=== PATIENT | female | born 1975 | race Caucasian/White ===

== ENCOUNTER 2017-07-17 18:49 | Emergency (ER) | payer BC | END 2017-07-17 19:08 | disposition home or self-care (01) | LOC: ER 18:49 | DX: J11.1 Influenza due to unidentified influenza virus with other respiratory manifestations (principal); F32.9 Major depressive disorder, single episode, unspecified; F41.9 Anxiety disorder, unspecified | CPT/HCPCS: 99281 ==

== ENCOUNTER 2018-08-30 08:21 | Inpatient (IN) | payer SELFPAY ==
[~2018-08-30] VITALS: Ht 167.6 cm; Wt 72.4 kg
[~2018-08-30 08:21] MED LIST: CITA10TA8 PO; HYDR-2761 PO; METR500T PO; PROM12.56 PO; TAMS0.4C97 PO; mirena
[2018-08-30 08:55] LABS: BILIRUBIN,URINE SMALL (NEG); CLARITY,URINE CLOUDY; COLOR,URINE ORANGE; NITRITE,URINE POSITIVE (NEG); PH,URINE 5.5; PROTEIN,URINE 100 mg/dL (NEG-TRACE)
--- NOTE | 2018-08-30 08:59 | PHYS DOC ---
Past Medical History Past Medical History: Anxiety, Depression, Kidney Stone, UTI (ELMER TRAN APRN) Past Surgical History: Other Additional Past Surgical Histo: BREAST AUGMENTATION,STENT-LEFT KIDNEY (ELMER TRAN APRN) Alcohol Use: None Drug Use: None (ELMER TRAN APRN) Adult General Chief Complaint Chief Complaint: FLANK PAIN HPI HPI Patient is a 43 year old female with a history of anxiety, depression, kidney stones, who presents to the ED today complaining of 6 out of 10 intermittent left flank pain that has been going on since she was diagnosed with a kidney stone around August 15, 2018. Patient states she was seen in the ED, had a 4 mm stone as well as infection in her urine, she states she was admitted and was discharged on August 17, 2018 with stent placement. She states she's been taking her medications as prescribed. She states she has continued to have left flank pain with nausea and vomiting. She states she is supposed to have the stents removed on Monday next week, she states she cannot wait until then because she still has left flank pain and feels the stents are making her pain worse. (ELMER TRAN APRN) Review of Systems Review of Systems Constitutional: Denies fever or chills [] Eyes: Denies change in visual acuity, redness, or eye pain [] HENT: Denies nasal congestion or sore throat [] Respiratory: Denies cough or shortness of breath [] Cardiovascular: No additional information not addressed in HPI [] GI: Reports nausea and vomiting. Denies abdominal pain, bloody stools or diarrhea [] : Reports left flank pain. Denies dysuria or hematuria [] Musculoskeletal: Denies back pain or joint pain [] Integument: Denies rash or skin lesions [] Neurologic: Denies headache, focal weakness or sensory changes All other systems were reviewed and found to be within normal limits, except as documented in this note. (ELMER TRAN APRN) Current Medications Current Medications Current Medications Medications (Trade) Dose Ordered Sig/Jason Start Time Stop Time Status Last Admin Dose Admin Ketorolac Tromethamine (Toradol 30mg Vial) 30 mg 1X ONCE 08/30/18 09:00 08/30/18 09:01 DC 08/30/18 09:29 30 MG Morphine Sulfate (Morphine Sulfate) 4 mg 1X ONCE 2/14/19 09:00 08/30/18 09:01 DC 08/30/18 09:29 4 MG Ondansetron HCl (Zofran) 4 mg 1X ONCE 08/30/18 09:15 08/30/18 09:16 DC 08/30/18 09:29 4 MG Sodium Chloride 1,000 ml @ 1,000 mls/hr 1X ONCE 08/30/18 09:00 08/30/18 09:59 DC 08/30/18 09:28 1,000 MLS/HR Tamsulosin HCl (Flomax) 0.4 mg 1X ONCE 08/30/18 09:00 08/30/18 09:01 DC 08/30/18 09:28 0.4 MG (AZAR HERNANDEZ MD) Allergies Allergies Allergies Coded Allergies Type Severity Reaction Last Updated Verified No Known Drug Allergies 12/12/13 No (AZAR HERNANDEZ MD) Physical Exam Physical Exam Constitutional: Well developed, well nourished, no acute distress, non-toxic appearance. [] HENT: Normocephalic, atraumatic, bilateral external ears normal, oropharynx moist, no oral exudates, nose normal. [] Eyes: PERRLA, EOMI, conjunctiva normal, no discharge. [] Neck: Normal range of motion, no tenderness, supple, no stridor. [] Cardiovascular:Heart rate regular rhythm, no murmur [] Lungs & Thorax: Bilateral breath sounds clear to auscultation [] Abdomen: Bowel sounds normal, soft, no tenderness, no masses, no pulsatile masses. [] Skin: Warm, dry, no erythema, no rash. [] Back: No tenderness, mild left CVA tenderness. [] Extremities: No tenderness, no cyanosis, no clubbing, ROM intact, no edema. [] Neurologic: Alert and oriented X 3, normal motor function, normal sensory function, no focal deficits noted. [] Psychologic: Affect normal, judgement normal, mood normal. [] (ELMER TRAN APRN) Current Patient Data Vital Signs Vital Signs Date Time Temp Pulse Resp B/P (MAP) Pulse Ox O2 Delivery O2 Flow Rate FiO2 08/30/18 08:30 98.8 85 20 129/63 (85) 99 Room Air 98.8 (AZAR HERNANDEZ MD) Lab Values Laboratory Tests Test 08/30/18 08:30 08/30/18 08:32 08/30/18 09:25 Urine Collection Type Unknown Urine Color Smith Urine Clarity Cloudy Urine pH 5.5 Urine Specific Holcomb 1.020 Urine Protein 100 mg/dL (NEG-TRACE) Urine Glucose (UA) Negative mg/dL (NEG) Urine Ketones (Stick) Trace mg/dL (NEG) Urine Blood Large (NEG) Urine Nitrite Positive (NEG) Urine Bilirubin Small (NEG) Urine Urobilinogen Dipstick 1.0 mg/dL (0.2 mg/dL) Urine Leukocyte Esterase Moderate (NEG) Urine RBC >40 /HPF (0-2) Urine WBC 5-10 /HPF (0-4) Urine Squamous Epithelial Cells Mod /LPF Urine Bacteria Few /HPF (0-FEW) Urine Mucus Slight /LPF Urine Opiates Screen Neg (NEG) Urine Methadone Screen Neg (NEG) Urine Barbiturates Neg (NEG) Urine Phencyclidine Screen Neg (NEG) Urine Amphetamine/Methamphetamine Neg (NEG) Urine Benzodiazepines Screen Neg (NEG) Urine Cocaine Screen Neg (NEG) Urine Cannabinoids Screen Pos (NEG) Urine Ethyl Alcohol Neg (NEG) POC Urine HCG, Qualitative Hcg negative (Negative) White Blood Count 9.3 x10^3/uL (4.0-11.0) Red Blood Count 4.58 x10^6/uL (3.50-5.40) Hemoglobin 15.0 g/dL (12.0-15.5) Hematocrit 44.3 % (36.0-47.0) Mean Corpuscular Volume 97 fL (79-100) Mean Corpuscular Hemoglobin 33 pg (25-35) Mean Corpuscular Hemoglobin Concent 34 g/dL (31-37) Red Cell Distribution Width 13.9 % (11.5-14.5) Platelet Count 400 x10^3/uL (140-400) Neutrophils (%) (Auto) 71 % (31-73) Lymphocytes (%) (Auto) 18 % (24-48) L Monocytes (%) (Auto) 8 % (0-9) Eosinophils (%) (Auto) 3 % (0-3) Basophils (%) (Auto) 1 % (0-3) Neutrophils # (Auto) 6.6 x10^3uL (1.8-7.7) Lymphocytes # (Auto) 1.6 x10^3/uL (1.0-4.8) Monocytes # (Auto) 0.7 x10^3/uL (0.0-1.1) Eosinophils # (Auto) 0.2 x10^3/uL (0.0-0.7) Basophils # (Auto) 0.1 x10^3/uL (0.0-0.2) Sodium Level 141 mmol/L (136-145) Potassium Level 3.6 mmol/L (3.5-5.1) Chloride Level 104 mmol/L (98-107) Carbon Dioxide Level 28 mmol/L (21-32) Anion Gap 9 (6-14) Blood Urea Nitrogen 14 mg/dL (7-20) Creatinine 0.8 mg/dL (0.6-1.0) Estimated GFR (Cockcroft-Gault) 79.0 BUN/Creatinine Ratio 18 (6-20) Glucose Level 91 mg/dL (70-99) Calcium Level 8.8 mg/dL (8.5-10.1) Total Bilirubin 0.4 mg/dL (0.2-1.0) Aspartate Amino Transferase (AST) 18 U/L (15-37) Alanine Aminotransferase (ALT) 30 U/L (14-59) Alkaline Phosphatase 65 U/L (46-116) Total Protein 7.0 g/dL (6.4-8.2) Albumin 3.6 g/dL (3.4-5.0) Albumin/Globulin Ratio 1.1 (1.0-1.7) Lipase 838 U/L (73-393) H Ethyl Alcohol Level < 10 mg/dL (0-10) Laboratory Tests 08/30/18 09:25 Laboratory Tests 08/30/18 09:25 (AZAR HERNANDEZ MD) EKG EKG [] (ELMER TRAN APRN) Radiology/Procedures Radiology/Procedures []PROCEDURE: CT ABDOMEN PELVIS WO CONTRAST CT ABDOMEN PELVIS WO CONTRAST Indication: L FLANK PAIN H/O STONES WITH STENTS NO PREV Exposure: One or more of the following individualized dose reduction techniques were utilized for this examination: 1. Automated exposure control 2. Adjustment of the mA and/or kV according to patient size 3. Use of iterative reconstruction technique. Comparison: August 15, 2018. Contrast: No intravenous or oral contrast. FINDINGS: Right breast implant is partially visualized. Mild lung base atelectasis. Evaluation of solid viscera, bowel and vasculature is compromised by the noncontrast technique. Liver and spleen are unremarkable. The pancreas head is difficult to distinguish from adjacent unopacified bowel. No definite pancreas abnormality. No adrenal mass. Subtle hypodensity in the upper pole of the posterior right kidney measures 14 Hounsfield units, representing a small poorly defined cyst appears similar as previous exam. Tiny nonobstructive right renal calculus is unchanged. No right hydronephrosis or urolithiasis Left ureteric stent identified extending from left renal pelvis to the urinary bladder. There is mild left hydronephrosis, similar to slightly greater than previous study. Ureter is not dilated on the left. No evidence of calculus along the course of the catheter. No calcified gallstone. Aorta is nonaneurysmal. No evidence of bowel obstruction. No definite acute colitis. The appendix appears normal. No evidence of ascites or pneumoperitoneum. No evidence of a pelvic mass. Urinary bladder is not adequately distended for evaluation. Vertebral body height and alignment appear maintained. No aggressive bone destruction. IMPRESSION: 1. Left urinary tract stent in place. Mild left hydronephrosis, similar to slightly greater, but obstructing calculus is not visualized on today's study. 2. Small subtle hypodense right upper pole renal lesion, likely a cyst, similar to prior study. Electronically signed by: Niels Richter MD (08/30/2018 9:25 AM) [facility] DICTATED and SIGNED BY: NIELS RICHTER MD DATE: 08/30/18 0913 (ELMER TRAN APRN) Course & Med Decision Making Course & Med Decision Making Pertinent Labs and Imaging studies reviewed. (See chart for details) This is a 43-year-old female patient presented to the ED today with ongoing left flank pain since she was diagnosed with kidney stone (4mm) and UTI on August 15, 2018. She had stent placement during her diagnoses. Presents to the ED complaining of ongoing flank pain with nausea vomiting. States is supposed to be removed on Monday next week. Patient is afebrile. Urine analysis is noted for moderate amount of leukocytes, nitrites, moderate amount of squamous cell epithelium, large amount of blood. CBC within normal WBC , CMP with no acute findings. Lipase 838. Patient denies any history of alcohol use. CT of the abdomen and pelvic shows left urinary tract stent in place. Mild left hydronephrosis, similar toslightly greater, but obstructing calculus is not visualized on today's study. Small subtle hypodense right upper pole renal lesion, likely a cyst, similar to prior study. Patient was started on Cipro and IV fluids. Consulted with Dr. Kim who accepted patient for admission Routine consult placed for urology. Routine consult placed for GI (ELMER TRAN APRN) Course & Med Decision Making Staff Physician Addendum: I was working in the ER during the course of this patient's visit. I was available for consultation as needed, but I was not directly involved in the care of this patient. (AZAR HERNANDEZ MD) Dragon Disclaimer Dragon Disclaimer This electronic medical record was generated, in whole or in part, using a voice recognition dictation system. (ELMER TRAN APRN) Departure Departure Impression: Primary Impression: UTI (lower urinary tract infection) Additional Impression: Pancreatitis, acute Disposition: 09 ADMITTED INPATIENT Condition: STABLE Referrals: MARVIN HUNTER (PCP) Problem Qualifiers Additional Impression: Pancreatitis, acute Pancreatitis type: unspecified pancreatitis type Acute pancreatitis complication: unspecified Qualified Codes: K85.90 - Acute pancreatitis without necrosis or infection, unspecified ELMER TRAN APRN Aug 30, 2018 08:59 AZAR HERNANDEZ MD Aug 30, 2018 12:15
[2018-08-30] MEDS ORDERED: IV NORMAL SALINE 1000ML BAG 1,000 ML IV ONE ×2 (09:00→10:45)
[2018-08-30] MEDS ORDERED: TAMSULOSIN 0.4 MG CAP.ER.24H. PO ONE (09:00)
[2018-08-30] MEDS ORDERED: KETOROLAC 30 MG/ML VIAL. IV ONE (09:00)
[2018-08-30] MEDS ORDERED: MORPHINE SULFATE 4 MG/ML VIAL. IV ONE (09:00)
[2018-08-30 09:15] LABS: BACTERIA,URINE FEW /HPF (0-FEW); RBC,URINE >40 /HPF (0-2); SQUAMOUS EPITHELIAL CELL,UR MOD /LPF
[2018-08-30] MEDS ORDERED: ONDANSETRON PF 4 MG/2 ML VIAL. IV ONE (09:15)
[2018-08-30 09:24] LABS: BARBITURATES NEG (NEG); BENZODIAZEPINES NEG (NEG); CANNABINOIDS POS (NEG); COCAINE NEG (NEG); METHADONE NEG (NEG); OPIATES NEG (NEG); PHENCYCLIDINE NEG (NEG)
[2018-08-30 09:26] LABS: AMPHETAMINE/METHAMPHETAMINE NEG (NEG)
--- NOTE | 2018-08-30 09:28 | RAD ---
CT ABDOMEN PELVIS WO CONTRAST Indication: L FLANK PAIN H/O STONES WITH STENTS NO PREV Exposure: One or more of the following individualized dose reduction techniques were utilized for this examination: 1. Automated exposure control 2. Adjustment of the mA and/or kV according to patient size 3. Use of iterative reconstruction technique. Comparison: August 15, 2018. Contrast: No intravenous or oral contrast. FINDINGS: Right breast implant is partially visualized. Mild lung base atelectasis. Evaluation of solid viscera, bowel and vasculature is compromised by the noncontrast technique. Liver and spleen are unremarkable. The pancreas head is difficult to distinguish from adjacent unopacified bowel. No definite pancreas abnormality. No adrenal mass. Subtle hypodensity in the upper pole of the posterior right kidney measures 14 Hounsfield units, representing a small poorly defined cyst appears similar as previous exam. Tiny nonobstructive right renal calculus is unchanged. No right hydronephrosis or urolithiasis Left ureteric stent identified extending from left renal pelvis to the urinary bladder. There is mild left hydronephrosis, similar to slightly greater than previous study. Ureter is not dilated on the left. No evidence of calculus along the course of the catheter. No calcified gallstone. Aorta is nonaneurysmal. No evidence of bowel obstruction. No definite acute colitis. The appendix appears normal. No evidence of ascites or pneumoperitoneum. No evidence of a pelvic mass. Urinary bladder is not adequately distended for evaluation. Vertebral body height and alignment appear maintained. No aggressive bone destruction. IMPRESSION: 1. Left urinary tract stent in place. Mild left hydronephrosis, similar to slightly greater, but obstructing calculus is not visualized on today's study. 2. Small subtle hypodense right upper pole renal lesion, likely a cyst, similar to prior study. Electronically signed by: Niels Richter MD (08/30/2018 9:25 AM) [facility]
[2018-08-30 09:53] LABS: BASO # 0.1 x10^3/uL (0.0-0.2); BASO % 1 % (0-3); EOS # 0.2 x10^3/uL (0.0-0.7); EOS % 3 % (0-3); HEMATOCRIT 44.3 % (36.0-47.0); LYMPH # 1.6 x10^3/uL (1.0-4.8); LYMPH % 18 % (24-48); MEAN CORPUSCULAR HEMOGLOBIN 33 pg (25-35); MEAN CORPUSCULAR HGB CONC 34 g/dL (31-37); MEAN CORPUSCULAR VOLUME 97 fL (79-100); MONO # 0.7 x10^3/uL (0.0-1.1); MONO % 8 % (0-9); NEUT # 6.6 x10^3uL (1.8-7.7); NEUT % 71 % (31-73); PLATELET COUNT 400 x10^3/uL (140-400); RED BLOOD COUNT 4.58 x10^6/uL (3.50-5.40); RED CELL DISTRIBUTION WIDTH 13.9 % (11.5-14.5); WHITE BLOOD COUNT 9.3 x10^3/uL (4.0-11.0)
[2018-08-30 10:10] LABS: CALCIUM 8.8 mg/dL (8.5-10.1); CREATININE 0.8 mg/dL (0.6-1.0); POTASSIUM 3.6 mmol/L (3.5-5.1)
[2018-08-30 10:11] LABS: ALBUMIN 3.6 g/dL (3.4-5.0); ALBUMIN/GLOBULIN RATIO 1.1 (1.0-1.7); TOTAL BILIRUBIN 0.4 mg/dL (0.2-1.0)
--- NOTE | 2018-08-30 10:43 | PDOC1 ---
History and Physical Date of Admission Date of Admission DATE: 08/30/18 TIME: 10:43 Identification/Chief Complaint Chief Complaint SEEN IN ER presented to the ED today complaining of 6 out of 10 intermittent left flank pain that has been going on since she was diagnosed with a kidney stone August 15, 2018. Patient states she was seen in the ED, had a 4 mm stone as well as infection in her urine, she states she was admitted and was discharged on August 17, 2018 with stent placement. She states she's been taking her medications as prescribed. C/O left flank pain with nausea and vomiting. She states she is supposed to have the stents removed on Monday09/03/18, Past Medical History Past Medical History Past Medical History: Anxiety, Depression, Kidney Stone, UTI SMOKER FHX COPD PMH: PMH: UTI, ureterolithiasis, depression, anxiety, bacterial vaginosis left ureteral stent, breast augmentation, IUD Social History: Smoke: <1 pack per day ALCOHOL: none Drugs: Marijuana (occasionally) Psych: Addictions Musculoskeletal: low back pain Family History Family History: High Cholestrol Social History Smoke: <1 pack per day ALCOHOL: none Drugs: Marijuana Current Medications Current Medications Current Medications Sodium Chloride 1,000 ml @ 1,000 mls/hr 1X ONCE IV Last administered on at 09:28; Start 08/30/18 at 09:00; Stop 08/30/18 at 09:59; Status DC Tamsulosin HCl (Flomax) 0.4 mg 1X ONCE PO Last administered on 08/30/18at 09:28 ; Start 08/30/18 at 09:00; Stop 08/30/18 at 09:01; Status DC Ketorolac Tromethamine (Toradol 30mg Vial) 30 mg 1X ONCE IV Last administered on 08/30/18at 09:29; Start 08/30/18 at 09:00; Stop 08/30/18 at 09:01; Status DC Morphine Sulfate (Morphine Sulfate) 4 mg 1X ONCE IV Last administered on at 09:29; Start 08/30/18 at 09:00; Stop 08/30/18 at 09:01; Status DC Ondansetron HCl (Zofran) 4 mg 1X ONCE IV Last administered on 08/30/18at 09:29 ; Start 08/30/18 at 09:15; Stop 08/30/18 at 09:16; Status DC Active Scripts Active Flagyl (Metronidazole) 500 Mg Tablet 1 Tab PO BID Flomax (Tamsulosin Hcl) 0.4 Mg Cap.er.24h 0.4 Mg PO DAILY MDD 1 Hydrocodone-Apap 5-325 (Hydrocodone Bit/Acetaminophen) 1 Tab Tablet 1 Tab PO PRN Q4HRS PRN Promethazine Hcl 12.5 Mg Tablet 12.5 Mg PO PRN Q6HRS PRN MDD 1 Reported [mirena] Celexa (Citalopram Hydrobromide) 10 Mg Tablet 10 Mg PO Allergies Allergies: Coded Allergies: No Known Drug Allergies (Unverified , 12/12/13) ROS Review of System Review of Systems Review of Systems Constitutional: chills [] Eyes: Denies change in visual acuity, redness, or eye pain [] HENT: Denies nasal congestion or sore throat [] Respiratory: Denies cough or shortness of breath [] Cardiovascular: No additional information not addressed in HPI [] GI: Reports nausea and vomiting. Denies abdominal pain, bloody stools or diarrhea [] : Reports left flank pain. Denies dysuria or hematuria [] Musculoskeletal: Denies back pain or joint pain [] Integument: Denies rash or skin lesions [] Neurologic: Denies headache, focal weakness or sensory changes 14 PT systems were reviewed and found to be within normal limits, except as documented . General: YES: Chills Hematological and Lymphatic: No: Bleeding Problems, Blood Clots, Blood Transfusions, Brusing, Night Sweats, Pallor, Swollen Lymph Nodes, Other ENDOCRINE: No: Breast Changes, Galactorrhea, Hair Pattern Changes, Hot Flashes , Malaise/lethargy, Mood Swings, Palpitations, Polydipsia/polyuria, Skin Changes , Temperature Intolerance, Unexpected Weight Changes, Other Cardiovascular: No Chest Pain, No Palpitations, No Orthopnea, No Paroxysmal Noc. Dyspnea, No Edema, No Lt Headedness, No Other Genitourinary: YES Pain, YES Flank Pain Physical Exam Physical Exam Constitutional: Well developed, well nourished, no acute distress, non-toxic appearance. [] HENT: Normocephalic, atraumatic, bilateral external ears normal, oropharynx moist, no oral exudates, nose normal. [] Eyes: PERRLA, EOMI, conjunctiva normal, no discharge. [] Neck: Normal range of motion, no tenderness, supple, no stridor. [] Cardiovascular:Heart rate regular rhythm, no murmur [] Lungs & Thorax: Bilateral breath sounds clear to auscultation [] Abdomen: Bowel sounds normal, soft, no tenderness, no masses, no pulsatile masses. [] Skin: Warm, dry, no erythema, no rash. [] Back: No tenderness, mild left CVA tenderness. [] Extremities: No tenderness, no cyanosis, no clubbing, ROM intact, no edema. [] Neurologic: Alert and oriented X 3, normal motor function, normal sensory function, no focal deficits noted. [] Psychologic: Affect normal, judgement normal, mood normal. [] General: Alert, Oriented X3, Cooperative, mild distress HEENT: Atraumatic, PERRLA, Mucous membr. moist/pink Lungs: Clear to auscultation, Normal air movement Breasts: Not examined Rectal Exam: not examined PELVIC: Examination not indicated Extremities: No cyanosis, No edema Neuro: Normal speech, Cranial nerves 3-12 NL Psych/Mental Status: Mental status NL, Mood NL Vitals Vitals Vital Signs Date Time Temp Pulse Resp B/P (MAP) Pulse Ox O2 Delivery O2 Flow Rate FiO2 08/30/18 08:30 98.8 85 20 129/63 (85) 99 Room Air 98.8 Labs Labs Laboratory Tests Test 08/30/18 08:30 08/30/18 08:32 08/30/18 09:25 Urine Collection Type Unknown Urine Color [place] Urine Clarity Cloudy Urine pH 5.5 Urine Specific [place] 1.020 Urine Protein 100 mg/dL (NEG-TRACE) Urine Glucose (UA) Negative mg/dL (NEG) Urine Ketones (Stick) Trace mg/dL (NEG) Urine Blood Large (NEG) Urine Nitrite Positive (NEG) Urine Bilirubin Small (NEG) Urine Urobilinogen Dipstick 1.0 mg/dL (0.2 mg/dL) Urine Leukocyte Esterase Moderate (NEG) Urine RBC >40 /HPF (0-2) Urine WBC 5-10 /HPF (0-4) Urine Squamous Epithelial Cells Mod /LPF Urine Bacteria Few /HPF (0-FEW) Urine Mucus Slight /LPF Urine Opiates Screen Neg (NEG) Urine Methadone Screen Neg (NEG) Urine Barbiturates Neg (NEG) Urine Phencyclidine Screen Neg (NEG) Urine Amphetamine/Methamphetamine Neg (NEG) Urine Benzodiazepines Screen Neg (NEG) Urine Cocaine Screen Neg (NEG) Urine Cannabinoids Screen Pos (NEG) Urine Ethyl Alcohol Neg (NEG) Bedside Urine HCG, Qualitative Hcg negative (Negative) White Blood Count 9.3 x10^3/uL (4.0-11.0) Red Blood Count 4.58 x10^6/uL (3.50-5.40) Hemoglobin 15.0 g/dL (12.0-15.5) Hematocrit 44.3 % (36.0-47.0) Mean Corpuscular Volume 97 fL (79-100) Mean Corpuscular Hemoglobin 33 pg (25-35) Mean Corpuscular Hemoglobin Concent 34 g/dL (31-37) Red Cell Distribution Width 13.9 % (11.5-14.5) Platelet Count 400 x10^3/uL (140-400) Neutrophils (%) (Auto) 71 % (31-73) Lymphocytes (%) (Auto) 18 % (24-48) Monocytes (%) (Auto) 8 % (0-9) Eosinophils (%) (Auto) 3 % (0-3) Basophils (%) (Auto) 1 % (0-3) Neutrophils # (Auto) 6.6 x10^3uL (1.8-7.7) Lymphocytes # (Auto) 1.6 x10^3/uL (1.0-4.8) Monocytes # (Auto) 0.7 x10^3/uL (0.0-1.1) Eosinophils # (Auto) 0.2 x10^3/uL (0.0-0.7) Basophils # (Auto) 0.1 x10^3/uL (0.0-0.2) Sodium Level 141 mmol/L (136-145) Potassium Level 3.6 mmol/L (3.5-5.1) Chloride Level 104 mmol/L (98-107) Carbon Dioxide Level 28 mmol/L (21-32) Anion Gap 9 (6-14) Blood Urea Nitrogen 14 mg/dL (7-20) Creatinine 0.8 mg/dL (0.6-1.0) Estimated GFR (Cockcroft-Gault) 79.0 BUN/Creatinine Ratio 18 (6-20) Glucose Level 91 mg/dL (70-99) Calcium Level 8.8 mg/dL (8.5-10.1) Total Bilirubin 0.4 mg/dL (0.2-1.0) Aspartate Amino Transf (AST/SGOT) 18 U/L (15-37) Alanine Aminotransferase (ALT/SGPT) 30 U/L (14-59) Alkaline Phosphatase 65 U/L (46-116) Total Protein 7.0 g/dL (6.4-8.2) Albumin 3.6 g/dL (3.4-5.0) Albumin/Globulin Ratio 1.1 (1.0-1.7) Lipase 838 U/L (73-393) Ethyl Alcohol Level < 10 mg/dL (0-10) Laboratory Tests Test 08/30/18 08:30 08/30/18 08:32 08/30/18 09:25 Urine Collection Type Unknown Urine Color [place] Urine Clarity Cloudy Urine pH 5.5 Urine Specific [place] 1.020 Urine Protein 100 mg/dL (NEG-TRACE) Urine Glucose (UA) Negative mg/dL (NEG) Urine Ketones (Stick) Trace mg/dL (NEG) Urine Blood Large (NEG) Urine Nitrite Positive (NEG) Urine Bilirubin Small (NEG) Urine Urobilinogen Dipstick 1.0 mg/dL (0.2 mg/dL) Urine Leukocyte Esterase Moderate (NEG) Urine RBC >40 /HPF (0-2) Urine WBC 5-10 /HPF (0-4) Urine Squamous Epithelial Cells Mod /LPF Urine Bacteria Few /HPF (0-FEW) Urine Mucus Slight /LPF Urine Opiates Screen Neg (NEG) Urine Methadone Screen Neg (NEG) Urine Barbiturates Neg (NEG) Urine Phencyclidine Screen Neg (NEG) Urine Amphetamine/Methamphetamine Neg (NEG) Urine Benzodiazepines Screen Neg (NEG) Urine Cocaine Screen Neg (NEG) Urine Cannabinoids Screen Pos (NEG) Urine Ethyl Alcohol Neg (NEG) Bedside Urine HCG, Qualitative Hcg negative (Negative) White Blood Count 9.3 x10^3/uL (4.0-11.0) Red Blood Count 4.58 x10^6/uL (3.50-5.40) Hemoglobin 15.0 g/dL (12.0-15.5) Hematocrit 44.3 % (36.0-47.0) Mean Corpuscular Volume 97 fL (79-100) Mean Corpuscular Hemoglobin 33 pg (25-35) Mean Corpuscular Hemoglobin Concent 34 g/dL (31-37) Red Cell Distribution Width 13.9 % (11.5-14.5) Platelet Count 400 x10^3/uL (140-400) Neutrophils (%) (Auto) 71 % (31-73) Lymphocytes (%) (Auto) 18 % (24-48) Monocytes (%) (Auto) 8 % (0-9) Eosinophils (%) (Auto) 3 % (0-3) Basophils (%) (Auto) 1 % (0-3) Neutrophils # (Auto) 6.6 x10^3uL (1.8-7.7) Lymphocytes # (Auto) 1.6 x10^3/uL (1.0-4.8) Monocytes # (Auto) 0.7 x10^3/uL (0.0-1.1) Eosinophils # (Auto) 0.2 x10^3/uL (0.0-0.7) Basophils # (Auto) 0.1 x10^3/uL (0.0-0.2) Sodium Level 141 mmol/L (136-145) Potassium Level 3.6 mmol/L (3.5-5.1) Chloride Level 104 mmol/L (98-107) Carbon Dioxide Level 28 mmol/L (21-32) Anion Gap 9 (6-14) Blood Urea Nitrogen 14 mg/dL (7-20) Creatinine 0.8 mg/dL (0.6-1.0) Estimated GFR (Cockcroft-Gault) 79.0 BUN/Creatinine Ratio 18 (6-20) Glucose Level 91 mg/dL (70-99) Calcium Level 8.8 mg/dL (8.5-10.1) Total Bilirubin 0.4 mg/dL (0.2-1.0) Aspartate Amino Transf (AST/SGOT) 18 U/L (15-37) Alanine Aminotransferase (ALT/SGPT) 30 U/L (14-59) Alkaline Phosphatase 65 U/L (46-116) Total Protein 7.0 g/dL (6.4-8.2) Albumin 3.6 g/dL (3.4-5.0) Albumin/Globulin Ratio 1.1 (1.0-1.7) Lipase 838 U/L (73-393) Ethyl Alcohol Level < 10 mg/dL (0-10) Images Images CT ABDOMEN PELVIS WO CONTRAST Indication: L FLANK PAIN H/O STONES WITH STENTS NO PREV Exposure: One or more of the following individualized dose reduction techniques were utilized for this examination: 1. Automated exposure control 2. Adjustment of the mA and/or kV according to patient size 3. Use of iterative reconstruction technique. Comparison: August 15, 2018. Contrast: No intravenous or oral contrast. FINDINGS: Right breast implant is partially visualized. Mild lung base atelectasis. Evaluation of solid viscera, bowel and vasculature is compromised by the noncontrast technique. Liver and spleen are unremarkable. The pancreas head is difficult to distinguish from adjacent unopacified bowel. No definite pancreas abnormality. No adrenal mass. Subtle hypodensity in the upper pole of the posterior right kidney measures 14 Hounsfield units, representing a small poorly defined cyst appears similar as previous exam. Tiny nonobstructive right renal calculus is unchanged. No right hydronephrosis or urolithiasis Left ureteric stent identified extending from left renal pelvis to the urinary bladder. There is mild left hydronephrosis, similar to slightly greater than previous study. Ureter is not dilated on the left. No evidence of calculus along the course of the catheter. No calcified gallstone. Aorta is nonaneurysmal. No evidence of bowel obstruction. No definite acute colitis. The appendix appears normal. No evidence of ascites or pneumoperitoneum. No evidence of a pelvic mass. Urinary bladder is not adequately distended for evaluation. Vertebral body height and alignment appear maintained. No aggressive bone destruction. IMPRESSION: 1. Left urinary tract stent in place. Mild left hydronephrosis, similar to slightly greater, but obstructing calculus is not visualized on today's study. 2. Small subtle hypodense right upper pole renal lesion, likely a cyst, similar to prior study. Electronically signed by: Sophia Richter MD (08/30/2018 9:25 AM) [id number] DICTATED and SIGNED BY: SOPHIA RICHTER MD DATE: 08/30/18 0913 VTE Prophylaxis Ordered VTE Prophylaxis Devices: Yes VTE Pharmacological Prophylaxi: Yes Assessment/Plan Assessment/Plan IMPRESSION: 1. Left urinary tract stent in place. Mild left hydronephrosis, similar to slightly greater, but obstructing calculus is not visualized 2. UTI 3. intractable vomiting plan iv antibiotics urology consult IV ZOFRAN PRN 4 MG Q 4 HRS SCD'S Problems Medical Problems: (1) BV (bacterial vaginosis) Status: Acute (2) Kidney stone Status: Acute (3) UTI (lower urinary tract infection) Status: Acute JOE PALOMO MD Aug 30, 2018 10:43
[2018-08-30] MEDS ORDERED: ACETAMINOPHEN 325 MG TABLET. PO PRN (10:45)
[2018-08-30] MEDS ORDERED: ONDANSETRON PF 4 MG/2 ML VIAL. IV PRN (10:45)
[2018-08-30] MEDS: MORPHINE SULFATE 4 MG/ML VIAL. IV PRN ×4 (10:59→21:56)
[2018-08-30] MEDS ORDERED: CIPROFLOXACIN 400MG PREMIX 200 ML IV ONE (11:00)
[2018-08-30] MEDS ORDERED: LIDOCAINE 2% JELLY 6ML IN APPLICATOR. ONE (12:00)
--- NOTE | 2018-08-30 12:00 | NUR ---
The patient, TERE NEIL, 43 y/o, F admitted by JOE PALOMO MD, was given written information regarding hospital policies, unit procedures and contact persons. Valuables were checked and pt wears glasses. oriented to room and call light. Prisca Bahena in to see patient.
--- NOTE | 2018-08-30 12:32 | PDOC2 ---
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 Identification/Chief Complaint Chief Complaint Stent pain Source Source: Chart review, Patient History of Present Illness Reason for Visit: This 43 year old female is known to us and came in with a small, but infected stone. A stent was inserted to allow for drainage and healing and the original plan was to have the stent removed on Monday as an outpatient. However, the pain became very intense today and she came in because she just could not take the pain anymore. Also, she is pretty sure she is running fevers. She has not taken her temperature, but she is sure she is running fevers because she felt hot. She just really wants the stent out because it is too painful to keep in anymore. Past Medical History Cardiovascular: No pertinent hx GI: No pertinent hx Heme/Onc: No pertinent hx Hepatobiliary: No pertinent hx Psych: No pertinent hx Renal/: Other (Kidney stone ) Endocrine: No pertinent hx Dermatology: No pertinent hx Social History ALCOHOL: none Drugs: Marijuana Current Problem List Problems: (1) UTI (lower urinary tract infection) (2) Kidney stone Current Medications Current Medications Current Medications Acetaminophen (Tylenol) 650 mg PRN Q4HRS PRN PO FEVER; Start 08/30/18 at 10:45 ; Stop 08/31/18 at 10:44 Ciprofloxacin/ Dextrose 200 ml @ 200 mls/hr 1X ONCE IV Last administered on at 11:30; Start 08/30/18 at 11:00; Stop 08/30/18 at 11:59; Status DC Ketorolac Tromethamine (Toradol 30mg Vial) 30 mg 1X ONCE IV Last administered on 08/30/18at 09:29; Start 08/30/18 at 09:00; Stop 08/30/18 at 09:01; Status DC Morphine Sulfate (Morphine Sulfate) 4 mg 1X ONCE IV Last administered on at 09:29; Start 08/30/18 at 09:00; Stop 08/30/18 at 09:01; Status DC Morphine Sulfate (Morphine Sulfate) 4 mg PRN Q2HR PRN IV PAIN Last administered on 08/30/18at 10:59; Start 08/30/18 at 10:45; Stop 08/31/18 at 10:44 Ondansetron HCl (Zofran) 4 mg 1X ONCE IV Last administered on 08/30/18at 09:29 ; Start 08/30/18 at 09:15; Stop 08/30/18 at 09:16; Status DC Ondansetron HCl (Zofran) 4 mg PRN Q8HRS PRN IV NAUSEA/VOMITING; Start 08/30/18 at 10:45; Stop 08/31/18 at 10:44 Sodium Chloride 1,000 ml @ 125 mls/hr 1X ONCE IV Last administered on at 10:59; Start 08/30/18 at 10:45; Stop 08/30/18 at 18:44 Sodium Chloride 1,000 ml @ 1,000 mls/hr 1X ONCE IV Last administered on at 09:28; Start 08/30/18 at 09:00; Stop 08/30/18 at 09:59; Status DC Tamsulosin HCl (Flomax) 0.4 mg 1X ONCE PO Last administered on 08/30/18at 09:28 ; Start 08/30/18 at 09:00; Stop 08/30/18 at 09:01; Status DC Allergies Allergies: Coded Allergies: No Known Drug Allergies (Unverified , 12/12/13) ROS Review Of Systems: CONSTITUTIONAL: + chills EYES: No recent changes SKIN: No rash or itching CARDIOVASCULAR: No chest pain, syncope, palpitations, or edema RESPIRATORY: No SOB or cough GASTROINTESTINAL: No nausea, vomiting or abdominal pain NEUROLOGICAL: No headaches or weakness ENDOCRINE: No cold or heat intolerance GENITOURINARY: No urgency or frequency of urination MUSCULOSKELETAL: No back pain or joint pain LYMPHATICS: No enlarged lymph nodes PSYCHIATRIC: No anxiety or depression Physical Exam Physical Exam: General: Pleasant, no acute distress, well groomed Eyes: conjunctiva anicteric, eyes full range of motion ENT: moist oral mucosa, normal dentition Neck: Trachea midline, no masses Respiratory: unlabored breathing, not using accessory muscles. Abdomen: nontender, nondistended, no hepatosplenomegaly, no masses Skin: no rashes or skin lesions on visualized skin Psych: normal mood, affect. Alert and oriented x 3. Vitals VITALS Vital Signs Date Time Temp Pulse Resp B/P (MAP) Pulse Ox O2 Delivery O2 Flow Rate FiO2 08/30/18 11:26 77 16 129/88 (102) 99 Room Air 08/30/18 08:30 98.8 98.8 Labs Labs Laboratory Tests Test 08/30/18 08:30 08/30/18 08:32 08/30/18 09:25 Urine Collection Type Unknown Urine Color [place] Urine Clarity Cloudy Urine pH 5.5 Urine Specific [place] 1.020 Urine Protein 100 mg/dL (NEG-TRACE) Urine Glucose (UA) Negative mg/dL (NEG) Urine Ketones (Stick) Trace mg/dL (NEG) Urine Blood Large (NEG) Urine Nitrite Positive (NEG) Urine Bilirubin Small (NEG) Urine Urobilinogen Dipstick 1.0 mg/dL (0.2 mg/dL) Urine Leukocyte Esterase Moderate (NEG) Urine RBC >40 /HPF (0-2) Urine WBC 5-10 /HPF (0-4) Urine Squamous Epithelial Cells Mod /LPF Urine Bacteria Few /HPF (0-FEW) Urine Mucus Slight /LPF Urine Opiates Screen Neg (NEG) Urine Methadone Screen Neg (NEG) Urine Barbiturates Neg (NEG) Urine Phencyclidine Screen Neg (NEG) Urine Amphetamine/Methamphetamine Neg (NEG) Urine Benzodiazepines Screen Neg (NEG) Urine Cocaine Screen Neg (NEG) Urine Cannabinoids Screen Pos (NEG) Urine Ethyl Alcohol Neg (NEG) Bedside Urine HCG, Qualitative Hcg negative (Negative) White Blood Count 9.3 x10^3/uL (4.0-11.0) Red Blood Count 4.58 x10^6/uL (3.50-5.40) Hemoglobin 15.0 g/dL (12.0-15.5) Hematocrit 44.3 % (36.0-47.0) Mean Corpuscular Volume 97 fL (79-100) Mean Corpuscular Hemoglobin 33 pg (25-35) Mean Corpuscular Hemoglobin Concent 34 g/dL (31-37) Red Cell Distribution Width 13.9 % (11.5-14.5) Platelet Count 400 x10^3/uL (140-400) Neutrophils (%) (Auto) 71 % (31-73) Lymphocytes (%) (Auto) 18 % (24-48) Monocytes (%) (Auto) 8 % (0-9) Eosinophils (%) (Auto) 3 % (0-3) Basophils (%) (Auto) 1 % (0-3) Neutrophils # (Auto) 6.6 x10^3uL (1.8-7.7) Lymphocytes # (Auto) 1.6 x10^3/uL (1.0-4.8) Monocytes # (Auto) 0.7 x10^3/uL (0.0-1.1) Eosinophils # (Auto) 0.2 x10^3/uL (0.0-0.7) Basophils # (Auto) 0.1 x10^3/uL (0.0-0.2) Sodium Level 141 mmol/L (136-145) Potassium Level 3.6 mmol/L (3.5-5.1) Chloride Level 104 mmol/L (98-107) Carbon Dioxide Level 28 mmol/L (21-32) Anion Gap 9 (6-14) Blood Urea Nitrogen 14 mg/dL (7-20) Creatinine 0.8 mg/dL (0.6-1.0) Estimated GFR (Cockcroft-Gault) 79.0 BUN/Creatinine Ratio 18 (6-20) Glucose Level 91 mg/dL (70-99) Calcium Level 8.8 mg/dL (8.5-10.1) Total Bilirubin 0.4 mg/dL (0.2-1.0) Aspartate Amino Transf (AST/SGOT) 18 U/L (15-37) Alanine Aminotransferase (ALT/SGPT) 30 U/L (14-59) Alkaline Phosphatase 65 U/L (46-116) Total Protein 7.0 g/dL (6.4-8.2) Albumin 3.6 g/dL (3.4-5.0) Albumin/Globulin Ratio 1.1 (1.0-1.7) Lipase 838 U/L (73-393) Ethyl Alcohol Level < 10 mg/dL (0-10) Laboratory Tests Test 08/30/18 08:30 08/30/18 08:32 08/30/18 09:25 Urine Collection Type Unknown Urine Color [place] Urine Clarity Cloudy Urine pH 5.5 Urine Specific [place] 1.020 Urine Protein 100 mg/dL (NEG-TRACE) Urine Glucose (UA) Negative mg/dL (NEG) Urine Ketones (Stick) Trace mg/dL (NEG) Urine Blood Large (NEG) Urine Nitrite Positive (NEG) Urine Bilirubin Small (NEG) Urine Urobilinogen Dipstick 1.0 mg/dL (0.2 mg/dL) Urine Leukocyte Esterase Moderate (NEG) Urine RBC >40 /HPF (0-2) Urine WBC 5-10 /HPF (0-4) Urine Squamous Epithelial Cells Mod /LPF Urine Bacteria Few /HPF (0-FEW) Urine Mucus Slight /LPF Urine Opiates Screen Neg (NEG) Urine Methadone Screen Neg (NEG) Urine Barbiturates Neg (NEG) Urine Phencyclidine Screen Neg (NEG) Urine Amphetamine/Methamphetamine Neg (NEG) Urine Benzodiazepines Screen Neg (NEG) Urine Cocaine Screen Neg (NEG) Urine Cannabinoids Screen Pos (NEG) Urine Ethyl Alcohol Neg (NEG) Bedside Urine HCG, Qualitative Hcg negative (Negative) White Blood Count 9.3 x10^3/uL (4.0-11.0) Red Blood Count 4.58 x10^6/uL (3.50-5.40) Hemoglobin 15.0 g/dL (12.0-15.5) Hematocrit 44.3 % (36.0-47.0) Mean Corpuscular Volume 97 fL (79-100) Mean Corpuscular Hemoglobin 33 pg (25-35) Mean Corpuscular Hemoglobin Concent 34 g/dL (31-37) Red Cell Distribution Width 13.9 % (11.5-14.5) Platelet Count 400 x10^3/uL (140-400) Neutrophils (%) (Auto) 71 % (31-73) Lymphocytes (%) (Auto) 18 % (24-48) Monocytes (%) (Auto) 8 % (0-9) Eosinophils (%) (Auto) 3 % (0-3) Basophils (%) (Auto) 1 % (0-3) Neutrophils # (Auto) 6.6 x10^3uL (1.8-7.7) Lymphocytes # (Auto) 1.6 x10^3/uL (1.0-4.8) Monocytes # (Auto) 0.7 x10^3/uL (0.0-1.1) Eosinophils # (Auto) 0.2 x10^3/uL (0.0-0.7) Basophils # (Auto) 0.1 x10^3/uL (0.0-0.2) Sodium Level 141 mmol/L (136-145) Potassium Level 3.6 mmol/L (3.5-5.1) Chloride Level 104 mmol/L (98-107) Carbon Dioxide Level 28 mmol/L (21-32) Anion Gap 9 (6-14) Blood Urea Nitrogen 14 mg/dL (7-20) Creatinine 0.8 mg/dL (0.6-1.0) Estimated GFR (Cockcroft-Gault) 79.0 BUN/Creatinine Ratio 18 (6-20) Glucose Level 91 mg/dL (70-99) Calcium Level 8.8 mg/dL (8.5-10.1) Total Bilirubin 0.4 mg/dL (0.2-1.0) Aspartate Amino Transf (AST/SGOT) 18 U/L (15-37) Alanine Aminotransferase (ALT/SGPT) 30 U/L (14-59) Alkaline Phosphatase 65 U/L (46-116) Total Protein 7.0 g/dL (6.4-8.2) Albumin 3.6 g/dL (3.4-5.0) Albumin/Globulin Ratio 1.1 (1.0-1.7) Lipase 838 U/L (73-393) Ethyl Alcohol Level < 10 mg/dL (0-10) Images Images CT ABD PELVIS IMPRESSION: 1. Left urinary tract stent in place. Mild left hydronephrosis, similar to slightly greater, but obstructing calculus is not visualized on today's study. 2. Small subtle hypodense right upper pole renal lesion, likely a cyst, similar to prior study. Assessment/Plan Assessment/Plan Indwelling stents: We will remove stent later today. Dr. Hinson is aware of patient and will perform procedure after clinic today. DEE HINSON MD 08/31/18 1423: UROLOGY CONSULT Assessment/Plan Assessment/Plan Patient seen and examined. Agree with assessment and plan. GWYN YEE APRN Aug 30, 2018 12:32 DEE HINSON MD Aug 31, 2018 14:23
[2018-08-30] MEDS ORDERED: PHEN-443 PO (12:41)
[2018-08-30] MEDS ORDERED: POLYETHYLENE GLYCOL 3350 17 GM PACKET. PO PRN (14:30)
--- NOTE | 2018-08-30 14:30 | NUR ---
Per Prisca Bahena, pt pre-medicated w/ Morphine @ [address] Lovelace will be at bedside thereafter to remove stent. Dr. Lovelace performed stent removal at 1430. pt tolerated well w/ some discomfort. Pg to Dr. Kim to get one time dose of pain medication as it is too soon for morphine. orders for prn dilaudid received.
--- NOTE | 2018-08-30 14:32 | PDOC2 ---
AMAYA GORDON 08/30/18 1432: GI CONSULT Reason For Consult: Pancreatitis HPI: HPI: 43 y/o female admitted through ER. Ill for about 2 weeks w/ left flank pain, left upper abdominal pain, and n/v. Recently admitted for similar symptoms and ultimately underwent cystoscopy w/ urinary stent placement for left hydronephrosis and obstructive ureteral stone. Also treated for UTI w/ Augmentin (though urine culture from 08/15/18 shows less than 10,000 colony forming unit of bacteria). Since discharged on 08/17, ongoing symptoms. Left flank pain is most bothersome, particularly when urinating - has taking a whole bottle (more than 100 pills) of ibuprofen since then. Also has some left upper abdominal pain that is intermittent, sometimes sharp and sometimes dull, and can feels like "bubbles." It might be worse about an hour after eating or might be improved after stooling. Nausea is frequent and she estimates vomiting occurs daily - is "foamy" but she might have seen some red blood in emesis yesterday. Feels bloated. Had subjective fever yesterday and has had chills off and on x 2 weeks. Labs notable for normal WBC, Hgb, BUN, Cr, and LFTs. Lipase mildly elevated ( 838). UA +blood and +nitrites. CT shows unremarkable pancreas, liver, and gallbladder. Note made of left urinary tract stent in place w/ mild left hydronephrosis similar to previous study w/o obstructive calculus. Was given IV Cipro x 1 in the ER. Tolerating some chicken broth and crackers this afternoon. No reflux/heartburn, dysphagia, hematochezia, or melena. Her average bowel pattern is 1-2 stools daily - last was dark brown and loose. She had some abdominal pain several months ago and says an x-ray showed retained stool; she took a laxative (can't remember which one) w/ good response.No previous EGD or colonoscopy. No gallbladder, pancreas, liver, or ulcer history. Occasionally takes ASA for headaches. 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 Her mother is present for interview. PMH: PMH: UTI, ureterolithiasis, depression, anxiety, bacterial vaginosis left ureteral stent, breast augmentation, IUD FH: Family History: No pertinent hx (denies GI cancers and pancreatitis) Social History: Smoke: <1 pack per day ALCOHOL: none Drugs: Marijuana (occasionally) ROS: GEN: +fever +chills HEENT: Denies blurred vision, sore throat CV: Denies chest pain RESP: Denies shortness of air, cough GI: Per HPI : +dysuria ENDO: Denies weight changes NEURO: Denies confusion, dizziness MSK: +left flank pain SKIN: Denies jaundice, pruritus Vitals: Vitals: Vital Signs Date Time Temp Pulse Resp B/P (MAP) Pulse Ox O2 Delivery O2 Flow Rate FiO2 08/30/18 11:26 77 16 129/88 (102) 99 Room Air 08/30/18 08:30 98.8 98.8 Labs: Labs: Laboratory Tests Test 08/30/18 08:30 08/30/18 08:32 08/30/18 09:25 Urine Collection Type Unknown Urine Color [place] Urine Clarity Cloudy Urine pH 5.5 Urine Specific [place] 1.020 Urine Protein 100 mg/dL (NEG-TRACE) Urine Glucose (UA) Negative mg/dL (NEG) Urine Ketones (Stick) Trace mg/dL (NEG) Urine Blood Large (NEG) Urine Nitrite Positive (NEG) Urine Bilirubin Small (NEG) Urine Urobilinogen Dipstick 1.0 mg/dL (0.2 mg/dL) Urine Leukocyte Esterase Moderate (NEG) Urine RBC >40 /HPF (0-2) Urine WBC 5-10 /HPF (0-4) Urine Squamous Epithelial Cells Mod /LPF Urine Bacteria Few /HPF (0-FEW) Urine Mucus Slight /LPF Urine Opiates Screen Neg (NEG) Urine Methadone Screen Neg (NEG) Urine Barbiturates Neg (NEG) Urine Phencyclidine Screen Neg (NEG) Urine Amphetamine/Methamphetamine Neg (NEG) Urine Benzodiazepines Screen Neg (NEG) Urine Cocaine Screen Neg (NEG) Urine Cannabinoids Screen Pos (NEG) Urine Ethyl Alcohol Neg (NEG) Bedside Urine HCG, Qualitative Hcg negative (Negative) White Blood Count 9.3 x10^3/uL (4.0-11.0) Red Blood Count 4.58 x10^6/uL (3.50-5.40) Hemoglobin 15.0 g/dL (12.0-15.5) Hematocrit 44.3 % (36.0-47.0) Mean Corpuscular Volume 97 fL (79-100) Mean Corpuscular Hemoglobin 33 pg (25-35) Mean Corpuscular Hemoglobin Concent 34 g/dL (31-37) Red Cell Distribution Width 13.9 % (11.5-14.5) Platelet Count 400 x10^3/uL (140-400) Neutrophils (%) (Auto) 71 % (31-73) Lymphocytes (%) (Auto) 18 % (24-48) Monocytes (%) (Auto) 8 % (0-9) Eosinophils (%) (Auto) 3 % (0-3) Basophils (%) (Auto) 1 % (0-3) Neutrophils # (Auto) 6.6 x10^3uL (1.8-7.7) Lymphocytes # (Auto) 1.6 x10^3/uL (1.0-4.8) Monocytes # (Auto) 0.7 x10^3/uL (0.0-1.1) Eosinophils # (Auto) 0.2 x10^3/uL (0.0-0.7) Basophils # (Auto) 0.1 x10^3/uL (0.0-0.2) Sodium Level 141 mmol/L (136-145) Potassium Level 3.6 mmol/L (3.5-5.1) Chloride Level 104 mmol/L (98-107) Carbon Dioxide Level 28 mmol/L (21-32) Anion Gap 9 (6-14) Blood Urea Nitrogen 14 mg/dL (7-20) Creatinine 0.8 mg/dL (0.6-1.0) Estimated GFR (Cockcroft-Gault) 79.0 BUN/Creatinine Ratio 18 (6-20) Glucose Level 91 mg/dL (70-99) Calcium Level 8.8 mg/dL (8.5-10.1) Total Bilirubin 0.4 mg/dL (0.2-1.0) Aspartate Amino Transf (AST/SGOT) 18 U/L (15-37) Alanine Aminotransferase (ALT/SGPT) 30 U/L (14-59) Alkaline Phosphatase 65 U/L (46-116) Total Protein 7.0 g/dL (6.4-8.2) Albumin 3.6 g/dL (3.4-5.0) Albumin/Globulin Ratio 1.1 (1.0-1.7) Lipase 838 U/L (73-393) Ethyl Alcohol Level < 10 mg/dL (0-10) Allergies: Coded Allergies: No Known Drug Allergies (Unverified , 12/12/13) Medications: Current Medications Medications (Trade) Dose Ordered Sig/Jason Route PRN Reason Start Time Stop Time Status Last Admin Dose Admin Sodium Chloride 1,000 ml @ 1,000 mls/hr 1X ONCE IV 08/30/18 09:00 08/30/18 09:59 DC 08/30/18 09:28 Tamsulosin HCl (Flomax) 0.4 mg 1X ONCE PO 08/30/18 09:00 08/30/18 09:01 DC 08/30/18 09:28 Ketorolac Tromethamine (Toradol 30mg Vial) 30 mg 1X ONCE IV 08/30/18 09:00 08/30/18 09:01 DC 08/30/18 09:29 Morphine Sulfate (Morphine Sulfate) 4 mg 1X ONCE IV 08/30/18 09:00 08/30/18 09:01 DC 08/30/18 09:29 Ondansetron HCl (Zofran) 4 mg 1X ONCE IV 08/30/18 09:15 08/30/18 09:16 DC 08/30/18 09:29 Morphine Sulfate (Morphine Sulfate) 4 mg PRN Q2HR PRN IV PAIN 08/30/18 10:45 08/31/18 10:44 08/30/18 13:22 Ciprofloxacin/ Dextrose 200 ml @ 200 mls/hr 1X ONCE IV 08/30/18 11:00 08/30/18 11:59 DC 08/30/18 11:30 Sodium Chloride 1,000 ml @ 125 mls/hr 1X ONCE IV 08/30/18 10:45 08/30/18 18:44 08/30/18 10:59 Imaging: Imaging: CT A/P FINDINGS: Right breast implant is partially visualized. Mild lung base atelectasis. Evaluation of solid viscera, bowel and vasculature is compromised by the noncontrast technique. Liver and spleen are unremarkable. The pancreas head is difficult to distinguish from adjacent unopacified bowel. No definite pancreas abnormality. No adrenal mass. Subtle hypodensity in the upper pole of the posterior right kidney measures 14 Hounsfield units, representing a small poorly defined cyst appears similar as previous exam. Tiny nonobstructive right renal calculus is unchanged. No right hydronephrosis or urolithiasis Left ureteric stent identified extending from left renal pelvis to the urinary bladder. There is mild left hydronephrosis, similar to slightly greater than previous study. Ureter is not dilated on the left. No evidence of calculus along the course of the catheter. No calcified gallstone. Aorta is nonaneurysmal. No evidence of bowel obstruction. No definite acute colitis. The appendix appears normal. No evidence of ascites or pneumoperitoneum. No evidence of a pelvic mass. Urinary bladder is not adequately distended for evaluation. Vertebral body height and alignment appear maintained. No aggressive bone destruction. IMPRESSION: 1. Left urinary tract stent in place. Mild left hydronephrosis, similar to slightly greater, but obstructing calculus is not visualized on today's study. 2. Small subtle hypodense right upper pole renal lesion, likely a cyst, similar to prior study. PE: GEN: NAD HEENT: Atraumatic, PERRL LUNGS: CTAB HEART: RRR ABD: NABS, S/ND, not particularly tender currently, no guarding or rebound RECTAL: brown stool EXTREMITY: No edema SKIN: No rashes, no jaundice NEURO/PSYCH: A & O 3 A/P: A/P: Left flank pain, recent ureteral stent placement, ?UTI N/v, upper abd discomfort/bloating ?hematemesis x 1 Mildly elevated lipase CRC screen - average risk NSAID use +cannabinoids -- Pt was seen/interviewed/examined w/ Dr. Arnold this afternoon. Tolerating clear liquids - okay to ADAT. Unclear significance of mildly elevated lipase - normal imaging, not a drinker. Regarding ?hematemesis, will add BID PPI and encourage minimizing NSAID use. Normal Hgb, BUN, and rectal exam. Add Miralax, encourage ambulation. Avoid marijuana - could contribute to n/v. Urology to see, note urine culture ordered. LEE ARNOLD MD 08/30/18 1521: AMAYA GORDON Aug 30, 2018 14:32 LEE ARNOLD MD Aug 30, 2018 15:21
[2018-08-30] MEDS ORDERED: HYDROmorphone 2 MG/ML VIAL IV PRN ×2 (14:45)
[2018-08-30] MEDS: POLYETHYLENE GLYCOL 3350 17 GM PACKET. PO SCH (14:50)
[2018-08-30 15:00] VITALS: BP 122/49
[2018-08-30] MEDS ORDERED: POTASSIUM CHLORIDE 20 MEQ TABLET.ER. PO ONE (15:30)
[2018-08-30] MEDS: PANTOPRAZOLE 40 MG TABLET.DR. PO SCH (16:53)
--- NOTE | 2018-08-30 18:45 | PDOC4 ---
PROCEDURE Procedure Notes from Dr. Thomas reviewed. He had planned for stent removal in office and then allow patient to try to pass her small stone. Patient now admitted, desires stent removal in the hospital. She has been having significant stent discomfort. Informed consent obtained. Bedside flexible cystoscopy performed under sterile technique with assistance of patient's nurse. Left ureteral stent grasped and removed without difficulty. Patient received schedule antibiotics a few hours earlier, so antibiotic prophylaxis not given. No complications, patient tolerated procedure well. DEE HINSON MD Aug 30, 2018 18:45
[2018-08-30 19:00] VITALS: BP 119/61
[2018-08-30] MEDS: CIPROFLOXACIN 400MG PREMIX 200 ML IV SCH (20:36)
[2018-08-30] MEDS ORDERED: PROCHLORPERAZINE 10 MG/2 ML VIAL. IV PRN (22:15)
[2018-08-30 22:41] VITALS: BP 104/49
[2018-08-31 03:00] VITALS: BP 96/57
[2018-08-31 04:35] LABS: BASO % 1 % (0-3); EOS # 0.4 x10^3/uL (0.0-0.7); EOS % 4 % (0-3); HEMATOCRIT 38.8 % (36.0-47.0); LYMPH # 2.6 x10^3/uL (1.0-4.8); LYMPH % 29 % (24-48); MEAN CORPUSCULAR HEMOGLOBIN 33 pg (25-35); MEAN CORPUSCULAR HGB CONC 34 g/dL (31-37); MEAN CORPUSCULAR VOLUME 98 fL (79-100); MONO # 0.8 x10^3/uL (0.0-1.1); MONO % 9 % (0-9); NEUT # 5.2 x10^3uL (1.8-7.7); NEUT % 58 % (31-73); PLATELET COUNT 319 x10^3/uL (140-400); RED BLOOD COUNT 3.97 x10^6/uL (3.50-5.40); RED CELL DISTRIBUTION WIDTH 13.5 % (11.5-14.5)
[2018-08-31 04:50] LABS: ALBUMIN 2.7 g/dL (3.4-5.0); CREATININE 0.7 mg/dL (0.6-1.0); GFR 92.2; TOTAL BILIRUBIN 0.4 mg/dL (0.2-1.0); TOTAL PROTEIN 5.4 g/dL (6.4-8.2)
[2018-08-31 07:00] VITALS: BP 95/40
[2018-08-31] MEDS: PANTOPRAZOLE 40 MG TABLET.DR. PO SCH (07:52)
[2018-08-31] MEDS ORDERED: POTASSIUM CHLORIDE 20 MEQ TABLET.ER. PO SCH (08:00)
[2018-08-31] MEDS ORDERED: CIPR250T30 PO (08:24)
[2018-08-31] MEDS: CIPROFLOXACIN 400MG PREMIX 200 ML IV SCH (08:52)
[2018-08-31] MEDS: POLYETHYLENE GLYCOL 3350 17 GM PACKET. PO SCH (08:53)
--- NOTE | 2018-08-31 09:19 | PDOC ---
GWYN YEE SERVICE COORDINATOR [facility] 08/31/18 0919: SUBJECTIVE Subjective Pt had bedside removal of stents yesterday. She has been doing well since then and would actually like to go home today if possible. OBJECTIVE Objective Physical Exam: General appearance: Alert and Oriented Head: Normocephalic, without obvious abnormality Eyes: conjunctivae/corneas clear. PERRL, EOM's intact. Fundi benign Back:No CVA pain. Lungs: Regular respirations, non labored breathing. Abdomen: soft, non-tender. No masses, no organomegaly Pelvic: deferred Vital Signs Vital Signs Date Time Temp Pulse Resp B/P (MAP) Pulse Ox O2 Delivery O2 Flow Rate FiO2 08/31/18 07:00 98.5 64 18 95/40 (58) 95 Room Air 98.5 08/31/18 03:00 98.2 70 17 96/57 (70) 97 Room Air 98.2 08/30/18 22:41 98.5 69 16 104/49 (67) 96 Room Air 98.5 08/30/18 22:33 20 Room Air 08/30/18 21:56 20 Room Air 08/30/18 20:50 Room Air 08/30/18 19:00 97.3 55 17 119/61 (80) 94 Room Air 97.3 08/30/18 17:48 Room Air 08/30/18 15:39 Room Air 08/30/18 15:00 98.4 63 17 122/49 (73) 98 Room Air 98.4 08/30/18 14:50 Room Air 08/30/18 13:49 Room Air 08/30/18 11:26 77 16 129/88 (102) 99 Room Air 08/30/18 10:30 74 18 119/82 (94) 99 Room Air 08/30/18 09:30 73 16 131/78 (95) 99 Room Air I & O Intake and Output 08/31/18 07:00 Intake Total 4000 ml Balance 4000 ml Intake Oral 1800 ml IV Total 2200 ml # Voids 2 PHYSICAL EXAM Physical Exam Physical Exam: General appearance: Alert and Oriented Head: Normocephalic, without obvious abnormality Eyes: conjunctivae/corneas clear. PERRL, EOM's intact. Fundi benign Back:No CVA pain. Lungs: Regular respirations, non labored breathing. Abdomen: soft, non-tender. No masses, no organomegaly Pelvic: deferred ASSESSMENT/PLAN Assessment/Plan Patient may discharge home whenever medical team is ready. Follow up with [facility] [place] on 09/03/18 at 340 pm. Appointment card given to patient. Will sign off at this time, but please call with questions or changes in patient condition. COMMENT Lab Laboratory Tests Test 08/30/18 09:25 08/31/18 04:15 White Blood Count 9.3 x10^3/uL (4.0-11.0) 9.0 x10^3/uL (4.0-11.0) Red Blood Count 4.58 x10^6/uL (3.50-5.40) 3.97 x10^6/uL (3.50-5.40) Hemoglobin 15.0 g/dL (12.0-15.5) 13.0 g/dL (12.0-15.5) Hematocrit 44.3 % (36.0-47.0) 38.8 % (36.0-47.0) Mean Corpuscular Volume 97 fL (79-100) 98 fL (79-100) Mean Corpuscular Hemoglobin 33 pg (25-35) 33 pg (25-35) Mean Corpuscular Hemoglobin Concent 34 g/dL (31-37) 34 g/dL (31-37) Red Cell Distribution Width 13.9 % (11.5-14.5) 13.5 % (11.5-14.5) Platelet Count 400 x10^3/uL (140-400) 319 x10^3/uL (140-400) Neutrophils (%) (Auto) 71 % (31-73) 58 % (31-73) Lymphocytes (%) (Auto) 18 % (24-48) 29 % (24-48) Monocytes (%) (Auto) 8 % (0-9) 9 % (0-9) Eosinophils (%) (Auto) 3 % (0-3) 4 % (0-3) Basophils (%) (Auto) 1 % (0-3) 1 % (0-3) Neutrophils # (Auto) 6.6 x10^3uL (1.8-7.7) 5.2 x10^3uL (1.8-7.7) Lymphocytes # (Auto) 1.6 x10^3/uL (1.0-4.8) 2.6 x10^3/uL (1.0-4.8) Monocytes # (Auto) 0.7 x10^3/uL (0.0-1.1) 0.8 x10^3/uL (0.0-1.1) Eosinophils # (Auto) 0.2 x10^3/uL (0.0-0.7) 0.4 x10^3/uL (0.0-0.7) Basophils # (Auto) 0.1 x10^3/uL (0.0-0.2) 0.0 x10^3/uL (0.0-0.2) Sodium Level 141 mmol/L (136-145) 140 mmol/L (136-145) Potassium Level 3.6 mmol/L (3.5-5.1) 4.0 mmol/L (3.5-5.1) Chloride Level 104 mmol/L (98-107) 108 mmol/L (98-107) Carbon Dioxide Level 28 mmol/L (21-32) 25 mmol/L (21-32) Anion Gap 9 (6-14) 7 (6-14) Blood Urea Nitrogen 14 mg/dL (7-20) 9 mg/dL (7-20) Creatinine 0.8 mg/dL (0.6-1.0) 0.7 mg/dL (0.6-1.0) Estimated GFR (Cockcroft-Gault) 79.0 92.2 BUN/Creatinine Ratio 18 (6-20) 13 (6-20) Glucose Level 91 mg/dL (70-99) 93 mg/dL (70-99) Calcium Level 8.8 mg/dL (8.5-10.1) 8.0 mg/dL (8.5-10.1) Total Bilirubin 0.4 mg/dL (0.2-1.0) 0.4 mg/dL (0.2-1.0) Aspartate Amino Transf (AST/SGOT) 18 U/L (15-37) 15 U/L (15-37) Alanine Aminotransferase (ALT/SGPT) 30 U/L (14-59) 23 U/L (14-59) Alkaline Phosphatase 65 U/L (46-116) 53 U/L (46-116) Total Protein 7.0 g/dL (6.4-8.2) 5.4 g/dL (6.4-8.2) Albumin 3.6 g/dL (3.4-5.0) 2.7 g/dL (3.4-5.0) Albumin/Globulin Ratio 1.1 (1.0-1.7) 1.0 (1.0-1.7) Lipase 838 U/L (73-393) 78 U/L (73-393) Ethyl Alcohol Level < 10 mg/dL (0-10) DEE HINSON MD 08/31/18 1423: ASSESSMENT/PLAN Assessment/Plan Agree with assessment and plan. GWYN YEE APRN Aug 31, 2018 09:19 DEE HINSON MD Aug 31, 2018 14:23
--- NOTE | 2018-08-31 09:52 | PDOC3 ---
Discharge Summary Visit Information Date of Admission: Aug 30, 2018 Date of Discharge: Aug 31, 2018 Admitting Diagnosis Comment: Left kidney stone, recent left ureteral stent placement Left ureteral stent removal 08/30/18 at bedside Final Diagnosis Problems Medical Problems: (1) Pancreatitis, acute Status: Acute (2) UTI (lower urinary tract infection) Status: Acute Brief Hospital Course Allergies Allergies Coded Allergies Type Severity Reaction Last Updated Verified No Known Drug Allergies 12/12/13 No Vital Signs Vital Signs Date Time Temp Pulse Resp B/P (MAP) Pulse Ox O2 Delivery O2 Flow Rate FiO2 08/31/18 07:00 98.5 64 18 95/40 (58) 95 Room Air 98.5 Lab Results Laboratory Tests Test 08/30/18 08:30 08/30/18 08:32 08/30/18 09:25 08/31/18 04:15 Urine Collection Type Unknown Urine Color [place] Urine Clarity Cloudy Urine pH 5.5 Urine Specific [place] 1.020 Urine Protein 100 mg/dL (NEG-TRACE) Urine Glucose (UA) Negative mg/dL (NEG) Urine Ketones (Stick) Trace mg/dL (NEG) Urine Blood Large (NEG) Urine Nitrite Positive (NEG) Urine Bilirubin Small (NEG) Urine Urobilinogen Dipstick 1.0 mg/dL (0.2 mg/dL) Urine Leukocyte Esterase Moderate (NEG) Urine RBC >40 /HPF (0-2) Urine WBC 5-10 /HPF (0-4) Urine Squamous Epithelial Cells Mod /LPF Urine Bacteria Few /HPF (0-FEW) Urine Mucus Slight /LPF Urine Opiates Screen Neg (NEG) Urine Methadone Screen Neg (NEG) Urine Barbiturates Neg (NEG) Urine Phencyclidine Screen Neg (NEG) Urine Amphetamine/Methamphetamine Neg (NEG) Urine Benzodiazepines Screen Neg (NEG) Urine Cocaine Screen Neg (NEG) Urine Cannabinoids Screen Pos (NEG) Urine Ethyl Alcohol Neg (NEG) Bedside Urine HCG, Qualitative Hcg negative (Negative) White Blood Count 9.3 x10^3/uL (4.0-11.0) 9.0 x10^3/uL (4.0-11.0) Red Blood Count 4.58 x10^6/uL (3.50-5.40) 3.97 x10^6/uL (3.50-5.40) Hemoglobin 15.0 g/dL (12.0-15.5) 13.0 g/dL (12.0-15.5) Hematocrit 44.3 % (36.0-47.0) 38.8 % (36.0-47.0) Mean Corpuscular Volume 97 fL (79-100) 98 fL (79-100) Mean Corpuscular Hemoglobin 33 pg (25-35) 33 pg (25-35) Mean Corpuscular Hemoglobin Concent 34 g/dL (31-37) 34 g/dL (31-37) Red Cell Distribution Width 13.9 % (11.5-14.5) 13.5 % (11.5-14.5) Platelet Count 400 x10^3/uL (140-400) 319 x10^3/uL (140-400) Neutrophils (%) (Auto) 71 % (31-73) 58 % (31-73) Lymphocytes (%) (Auto) 18 % (24-48) 29 % (24-48) Monocytes (%) (Auto) 8 % (0-9) 9 % (0-9) Eosinophils (%) (Auto) 3 % (0-3) 4 % (0-3) Basophils (%) (Auto) 1 % (0-3) 1 % (0-3) Neutrophils # (Auto) 6.6 x10^3uL (1.8-7.7) 5.2 x10^3uL (1.8-7.7) Lymphocytes # (Auto) 1.6 x10^3/uL (1.0-4.8) 2.6 x10^3/uL (1.0-4.8) Monocytes # (Auto) 0.7 x10^3/uL (0.0-1.1) 0.8 x10^3/uL (0.0-1.1) Eosinophils # (Auto) 0.2 x10^3/uL (0.0-0.7) 0.4 x10^3/uL (0.0-0.7) Basophils # (Auto) 0.1 x10^3/uL (0.0-0.2) 0.0 x10^3/uL (0.0-0.2) Sodium Level 141 mmol/L (136-145) 140 mmol/L (136-145) Potassium Level 3.6 mmol/L (3.5-5.1) 4.0 mmol/L (3.5-5.1) Chloride Level 104 mmol/L (98-107) 108 mmol/L (98-107) Carbon Dioxide Level 28 mmol/L (21-32) 25 mmol/L (21-32) Anion Gap 9 (6-14) 7 (6-14) Blood Urea Nitrogen 14 mg/dL (7-20) 9 mg/dL (7-20) Creatinine 0.8 mg/dL (0.6-1.0) 0.7 mg/dL (0.6-1.0) Estimated GFR (Cockcroft-Gault) 79.0 92.2 BUN/Creatinine Ratio 18 (6-20) 13 (6-20) Glucose Level 91 mg/dL (70-99) 93 mg/dL (70-99) Calcium Level 8.8 mg/dL (8.5-10.1) 8.0 mg/dL (8.5-10.1) Total Bilirubin 0.4 mg/dL (0.2-1.0) 0.4 mg/dL (0.2-1.0) Aspartate Amino Transf (AST/SGOT) 18 U/L (15-37) 15 U/L (15-37) Alanine Aminotransferase (ALT/SGPT) 30 U/L (14-59) 23 U/L (14-59) Alkaline Phosphatase 65 U/L (46-116) 53 U/L (46-116) Total Protein 7.0 g/dL (6.4-8.2) 5.4 g/dL (6.4-8.2) Albumin 3.6 g/dL (3.4-5.0) 2.7 g/dL (3.4-5.0) Albumin/Globulin Ratio 1.1 (1.0-1.7) 1.0 (1.0-1.7) Lipase 838 U/L (73-393) 78 U/L (73-393) Ethyl Alcohol Level < 10 mg/dL (0-10) Laboratory Tests Test 08/31/18 04:15 White Blood Count 9.0 x10^3/uL (4.0-11.0) Red Blood Count 3.97 x10^6/uL (3.50-5.40) Hemoglobin 13.0 g/dL (12.0-15.5) Hematocrit 38.8 % (36.0-47.0) Mean Corpuscular Volume 98 fL (79-100) Mean Corpuscular Hemoglobin 33 pg (25-35) Mean Corpuscular Hemoglobin Concent 34 g/dL (31-37) Red Cell Distribution Width 13.5 % (11.5-14.5) Platelet Count 319 x10^3/uL (140-400) Neutrophils (%) (Auto) 58 % (31-73) Lymphocytes (%) (Auto) 29 % (24-48) Monocytes (%) (Auto) 9 % (0-9) Eosinophils (%) (Auto) 4 % (0-3) Basophils (%) (Auto) 1 % (0-3) Neutrophils # (Auto) 5.2 x10^3uL (1.8-7.7) Lymphocytes # (Auto) 2.6 x10^3/uL (1.0-4.8) Monocytes # (Auto) 0.8 x10^3/uL (0.0-1.1) Eosinophils # (Auto) 0.4 x10^3/uL (0.0-0.7) Basophils # (Auto) 0.0 x10^3/uL (0.0-0.2) Sodium Level 140 mmol/L (136-145) Potassium Level 4.0 mmol/L (3.5-5.1) Chloride Level 108 mmol/L (98-107) Carbon Dioxide Level 25 mmol/L (21-32) Anion Gap 7 (6-14) Blood Urea Nitrogen 9 mg/dL (7-20) Creatinine 0.7 mg/dL (0.6-1.0) Estimated GFR (Cockcroft-Gault) 92.2 BUN/Creatinine Ratio 13 (6-20) Glucose Level 93 mg/dL (70-99) Calcium Level 8.0 mg/dL (8.5-10.1) Total Bilirubin 0.4 mg/dL (0.2-1.0) Aspartate Amino Transf (AST/SGOT) 15 U/L (15-37) Alanine Aminotransferase (ALT/SGPT) 23 U/L (14-59) Alkaline Phosphatase 53 U/L (46-116) Total Protein 5.4 g/dL (6.4-8.2) Albumin 2.7 g/dL (3.4-5.0) Albumin/Globulin Ratio 1.0 (1.0-1.7) Lipase 78 U/L (73-393) Brief Hospital Course Ms. Rhodes is a 43 old white female who is known to me, was here a few weeks ago for a kidney stone and underwent stent placement. Incidental BV hence also discharged on Flagyl. Comes in again earlier than scheduled outpatient appointment because of severe pain. Left ureteral stent was removed at bedside by urology. Pain better. Incidental mild UTI which I opted to treat because of recent instrumentation Home today with by mouth Cipro and follow-up urology GAYLA as instructed She did request for some Lortab tabs which only give 10 pills because there is no reason for her to be in pain anymore Toradol also given when necessary Consults performed neurology Procedure performed left ureteral stent removal at bedside Discharge Information Condition at Discharge: Improved, Stable Disposition/Orders: D/C to Home Scheduled Metronidazole (Flagyl) 500 Mg Tablet, 1 TAB PO BID for bActerial vaginosis, #14 Prescribed by: SONAM RO on 08/17/18 1051 Last Taken: Unknown Dose on 08/27/18 Last Action: Last Taken Edited on 1240 by NAILA MATUTE Phenazopyridine Hcl (Phenazopyridine Hcl) 100 Mg Tablet, 100 MG PO BID for UTI, (Reported) Entered as Reported by: NAILA MATUTE on 08/30/18 1241 Last Taken: Unknown Dose on 08/27/18 Last Action: New Order on 08/30/181240 by NAILA MATUTE Tamsulosin Hcl (Flomax) 0.4 Mg Cap.er.24h, 0.4 MG PO DAILY for kidneys tone MDD 1, #15 Prescribed by: SONAM RO on 08/17/18 1044 Last Taken: Unknown Dose on 08/27/18 Last Action: Last Taken Edited on 1240 by NAILA MATUTE Scheduled PRN Hydrocodone Bit/Acetaminophen (Hydrocodone-Apap 5-325 ) 1 Tab Tablet, 1 TAB PO PRN Q4HRS PRN for PAIN, #20 Prescribed by: SONAM RO on 08/17/18 1044 Last Taken: Unknown Dose on 08/27/18 Last Action: Last Taken Edited on 1241 by NAILA MATUTE Promethazine Hcl (Promethazine Hcl) 12.5 Mg Tablet, 12.5 MG PO PRN Q6HRS PRN for NAUSEA/VOMITING MDD 1, #15 Prescribed by: SONAM RO on 08/17/18 1044 Last Taken: Unknown Dose on 08/27/18 Last Action: Last Taken Edited on 1241 by NAILA MATUTE Miscellaneous Medications [mirena] , (Reported) Entered as Reported by: KRISSY MATA on 12/12/132105 SONAM RO MD Aug 31, 2018 09:52
[2018-08-31] MEDS ORDERED: KETOROLAC TROMETHAMINE 10 MG TABLET PO PRN (10:00)
[2018-08-31 10:36] VITALS: BP 104/40
--- NOTE | 2018-08-31 11:50 | NUR ---
SW following. Discussed with RN, RN advised no SW needs and anticipates pt will discharge home today with self care. SW met with pt to provide self pay resources. Pt denied any further needs for SW. RN notified.
--- NOTE | 2018-08-31 12:00 | NUR ---
Discharge Note: [facility]ERE NE[facility] [address] Discharge instructions and discharge home medications reviewed with Patient and a copy given. All questions have been answered and understanding verbalized. The following instructions and handouts were given: follow up, medication education, when to seek emergency medical attention Discontinued lines and drains: peripheral IV dc'd cath intact. Patient discharged to home via private vehicle.
== END 2018-08-31 12:47 | disposition home or self-care (01) | DRG 698 ==
LOC: ER 08:21 → 5 SOUTH 10:12
PROVIDERS: ADMIT Family Medicine; ATTEND Family Medicine
PROC: 0TP98DZ Removal of Intraluminal Device from Ureter, Via Natural or Artificial Opening Endoscopic (ICD-10-PCS; principal; 2018-08-30)
DX: T83.84XA Pain due to genitourinary prosthetic devices, implants and grafts, initial encounter (principal); K85.90 Acute pancreatitis without necrosis or infection, unspecified; N13.6 Pyonephrosis; B96.89 Other specified bacterial agents as the cause of diseases classified elsewhere; F32.9 Major depressive disorder, single episode, unspecified; F41.9 Anxiety disorder, unspecified; F17.210 Nicotine dependence, cigarettes, uncomplicated; N76.0 Acute vaginitis; F12.10 Cannabis abuse, uncomplicated; Z79.82 Long term (current) use of aspirin; Z82.5 Family history of asthma and other chronic lower respiratory diseases; Z87.442 Personal history of urinary calculi; Z79.899 Other long term (current) drug therapy
CPT/HCPCS: 36415; 74176; 80053; 80307; 81001; 81025; 83690; 85025; 87086; 96361; 96365; 96375; G0480; J0744; J0780; J1170; J1885; J2270; J2405; J7030; 99285-25

== ENCOUNTER 2019-07-13 10:03 | Emergency (ER) | payer SELFPAY ==
[~2019-07-13] VITALS: Ht 167.6 cm; Wt 70.3 kg
[~2019-07-13 10:03] MED LIST changes: +CEPH500C PO; +CIPR250T30 PO; +LACT1CAP12 PO; +PHEN-443 PO; -PROM12.56 PO; +PROM12.58 PO
[2019-07-13 10:15] VITALS: BP 102/63
[2019-07-13 10:28] LABS: BILIRUBIN,URINE NEGATIVE (NEG); CLARITY,URINE CLOUDY; COLOR,URINE YELLOW; NITRITE,URINE NEGATIVE (NEG); PH,URINE 5.5; PROTEIN,URINE NEGATIVE (NEG-TRACE); UROBILINOGEN,URINE 0.2 mg/dL (0.2 mg/dL)
[2019-07-13 10:31] LABS: BACTERIA,URINE MANY /HPF (0-FEW); SQUAMOUS EPITHELIAL CELL,UR MANY /LPF
[2019-07-13] MEDS ORDERED: METR500T PO (11:04)
[2019-07-13] MEDS ORDERED: SULF1TAB24 PO (11:04)
[2019-07-13] MEDS ORDERED: FLUC150T PO (11:04)
--- NOTE | 2019-07-13 11:04 | PHYS DOC ---
Past Medical History Past Medical History: Anxiety, Depression, Kidney Stone, UTI (ELMER TRAN APRN) Past Surgical History: Other Additional Past Surgical Histo: BREAST AUGMENTATION,STENT-LEFT KIDNEY (ELMER TRAN APRN) Alcohol Use: None Drug Use: None (ELMER TRAN APRN) Adult General Chief Complaint Chief Complaint: PAIN ON URINATION HPI HPI Patient is a 44 year old female who presents to the ED today complaining of dysuria for 3 days. Patient is also concerned she has BV and would like to be treated now tested. Denies any fever, nausea or vomiting. (ELMER TRAN APRN) Review of Systems Review of Systems Constitutional: Denies fever or chills [] Eyes: Denies change in visual acuity, redness, or eye pain [] HENT: Denies nasal congestion or sore throat [] Respiratory: Denies cough or shortness of breath [] Cardiovascular: No additional information not addressed in HPI [] GI: Denies abdominal pain, nausea, vomiting, bloody stools or diarrhea [] : Reports dysuria and concern for BV, denies hematuria [] Musculoskeletal: Denies back pain or joint pain [] Integument: Denies rash or skin lesions [] Neurologic: Denies headache, focal weakness or sensory changes [] All other systems were reviewed and found to be within normal limits, except as documented in this note. (ELMER TRAN APRN) Allergies Allergies Allergies Coded Allergies Type Severity Reaction Last Updated Verified No Known Drug Allergies 12/12/13 No (SOPHIA RHOADES DO) Physical Exam Physical Exam Constitutional: Well developed, well nourished, no acute distress, non-toxic appearance. [] HENT: Normocephalic, atraumatic, bilateral external ears normal, oropharynx moist, no oral exudates, nose normal. [] Eyes: PERRLA, EOMI, conjunctiva normal, no discharge. [] Neck: Normal range of motion, no tenderness, supple, no stridor. [] Cardiovascular:Heart rate regular rhythm, no murmur [] Lungs & Thorax: Bilateral breath sounds clear to auscultation [] Abdomen: Bowel sounds normal, soft, no tenderness, no masses, no pulsatile masses. [] Skin: Warm, dry, no erythema, no rash. [] Back: No tenderness, no CVA tenderness. [] Extremities: No tenderness, no cyanosis, no clubbing, ROM intact, no edema. [] Neurologic: Alert and oriented X 3, normal motor function, normal sensory function, no focal deficits noted. [] Psychologic: Affect normal, judgement normal, mood normal. [] (ELMER TRAN APRN) Current Patient Data Vital Signs Vital Signs Date Time Temp Pulse Resp B/P (MAP) Pulse Ox O2 Delivery O2 Flow Rate FiO2 07/13/19 10:15 97.4 60 16 102/63 (76) 98 Room Air 97.4 (SOPHIA RHOADES DO) Lab Values Laboratory Tests Test 07/13/19 10:18 07/13/19 10:23 Urine Collection Type Void Urine Color Yellow Urine Clarity Cloudy Urine pH 5.5 Urine Specific [place] 1.025 Urine Protein Negative mg/dL (NEG-TRACE) Urine Glucose (UA) Negative mg/dL (NEG) Urine Ketones (Stick) Negative mg/dL (NEG) Urine Blood Negative (NEG) Urine Nitrite Negative (NEG) Urine Bilirubin Negative (NEG) Urine Urobilinogen Dipstick 0.2 mg/dL (0.2 mg/dL) Urine Leukocyte Esterase Small (NEG) Urine RBC 3-5 /HPF (0-2) Urine WBC 5-10 /HPF (0-4) Urine Squamous Epithelial Cells Many /LPF Urine Bacteria Many /HPF (0-FEW) Urine Mucus Marked /LPF POC Urine HCG, Qualitative Hcg negative (Negative) (SOPHIA RHOADES DO) EKG EKG [] (ELMER TRAN APRN) Radiology/Procedures Radiology/Procedures [] (ELMER TRAN APRN) Course & Med Decision Making Course & Med Decision Making Pertinent Labs and Imaging studies reviewed. (See chart for details) This is a 44-year-old. Patient presenting to the ED today concerned she has a UTI and BV. Prefers to be tested for UTI and treated for BV with no testing. Urine analysis is noted for small amount of leukocytes, 5-10 WBCs, urine also appears contaminated. Patient requesting treatment. Given Rx for Bactrim, Flagyl and fluconazole. Follow-up with PCP in 1-2 weeks. (ELMER TRAN APRN) Dragon Disclaimer Dragon Disclaimer This electronic medical record was generated, in whole or in part, using a voice recognition dictation system. (ELMER TRAN APRN) Departure Departure Impression: Primary Impression: UTI (lower urinary tract infection) Additional Impression: BV (bacterial vaginosis) Disposition: 01 HOME, SELF-CARE Condition: STABLE Referrals: MARVIN HUNTER (PCP) follow up ink 1-2 weeks Patient Instructions: Bacterial Vaginosis, Urinary Tract Infection Additional Instructions: You were treated for bacterial vaginosis and urinary tract infection, please complete your antibiotics. Follow-up with your own doctor in 1-2 weeks. Scripts Fluconazole (DIFLUCAN) 150 Mg Tablet 1 TAB PO ONCE, #1 TAB 1 Refill Prov: ELMER TRAN APRN 07/13/19 Sulfamethoxazole/Trimethoprim (BACTRIM DS TABLET) 1 Each Tablet 1 TAB PO BID for 7 Days, #14 TAB 0 Refills Prov: ELMER TRAN APRN 07/13/19 Metronidazole (FLAGYL) 500 Mg Tablet 1 TAB PO BID, #14 TAB Prov: ELMER TRAN APRN 07/13/19 Attending Signature Attending Signature I have reviewed the PA/WRAP KNITTING MACHINE OPERATOR's note and plan of care. I was available for consultation as needed during the patient's visit in the emergency department. I agree with the clinical impression, plan, and disposition. (SOPHIA RHOADES DO) Problem Qualifiers ELMER TRAN APRN Jul 13, 2019 11:04 SOPHIA RHOADES DO Jul 13, 2019 17:43
== END 2019-07-13 11:12 | disposition home or self-care (01) ==
LOC: ER 10:03
DX: N39.0 Urinary tract infection, site not specified (principal); N76.0 Acute vaginitis; F41.9 Anxiety disorder, unspecified; F32.9 Major depressive disorder, single episode, unspecified; Z87.442 Personal history of urinary calculi; Z98.890 Other specified postprocedural states
CPT/HCPCS: 81001; 81025; 87086; 99284